=== PATIENT | male | born 1955 | race Caucasian/White ===

== ENCOUNTER 2018-08-11 00:30 | Day surgery (SDC) | payer OTHER, BC ==
[~2018-08-11] VITALS: Ht 180.3 cm; Wt 98.9 kg
[~2018-08-11 00:30] MED LIST: BP MED; CHOLESTEROL MED; DOXY-228 PO; PER PO; humalog; losartan
[2018-08-11] MEDS ORDERED: PROPOFOL EMUL(*) 10MG/ML 20 ML 40 ML ONE (07:11)
[2018-08-11 09:08] VITALS: BP 146/80
[2018-08-11] MEDS ORDERED: PROPOFOL EMUL(*) 10MG/ML 20 ML 20 ML ONE (10:14)
[2018-08-11] MEDS ORDERED: LIDOCAINE/SOD BICARB 8.4% SYR ID ONE (10:30)
[2018-08-11] MEDS ORDERED: NORMOSOL R SOLN(*) 1000 ML BAG 1,000 ML IV PRN (10:30)
[2018-08-11 10:50] VITALS: BP 91/54
--- NOTE | 2018-08-11 10:56 | NUR ---
1050 SBAR REPORT WAS RECEIVED FROM DR. STOCK AND NICKIE SHARMA. PATIENT IS SNORING VERY LOUDLY. LUNGS ARE CLEAR. BOWEL SOUNDS ARE HYPERACTIVE. UNABLE TO ASSESS PAIN OR NAUSEA. HE IS LAYING IN A L. LATERAL POSITION. DAUGHTER AND GRANDDAUGHTER ARE IN HIS ROOM. HIS HEART RATE IS LINDA. SEE ADMISSION ASSESSMENT.
[2018-08-11 11:00] VITALS: BP 88/57
--- NOTE | 2018-08-11 11:04 | NUR ---
1102 PATIENT BEGAN TO WAKE UP. 1104 REMOVED O2 FROM PATIENT AND MOVED HIM TO ROOM AIR.
--- NOTE | 2018-08-11 11:15 | NUR ---
1112 PATIENT BEGAN DRINKING OJ ADN EATING APPLESAUCE. HE IS TOLERATING THIS WELL.
[2018-08-11 11:30] VITALS: BP 104/69
[2018-08-11 11:31] VITALS: BP 111/70
--- NOTE | 2018-08-11 11:50 | NUR ---
1130 BEGAN DOING ORTHOSTATICS WITH PATIENT. HE DENIES ANY DIZZINESS OR LIGHTHEADEDNESS 1131 PATIENT BEGAN STANDING. HE IS STABLE ON HIS FEET 1132 IV WAS SALINE LOCKED 1133 PATIENT BEGAN GETTING DRESSED 1140 IV WAS DC'D WITH CATH INTACT 1142 FINISHED GOING OVER DC INSTRUCTIONS WITH PATIENT AND FAMILY. THEY VERBALIZED UNDERSTANDING 1145 PATIENT WAS ABLE TO USE THE RESTROOM WITHOUT DIFFICULTIES 1150 PATIENT WAS DC'D AND WAS AMBULATORY ON DISCHARGE. HIS LUNGS ARE CLEAR. BOWEL SOUNDS ARE HYPERACTIVE. HE DENIES ANY PAIN OR NAUSEA. SEE DISCHARGE ASSESSMENT.
== END 2018-08-11 11:50 | disposition home or self-care (01) ==
LOC: OR 00:30
PROVIDERS: ATTEND Family Medicine
DX: Z12.11 Encounter for screening for malignant neoplasm of colon (principal); E11.9 Type 2 diabetes mellitus without complications; I10 Essential (primary) hypertension
CPT/HCPCS: 00812; 36416; 45378; 82948; J2704